=== PATIENT | male | born 1980 | race Caucasian/White ===

== ENCOUNTER → 2024-11-05 | Outpatient (CLI) | payer BC, SELFPAY ==
--- NOTE | 2024-11-05 10:36 | XR_ITS ---
Examination: Ribs, right, with PA chest, 5 views Technique: Chest PA, RIBS AP, RPO, LPO, AP coned lower ribs 5 views Exam date and time: November 05, 2024 1043 hours INDICATIONS: Patient fell today with injury to the right chest, right rib pain Findings: Normal heart size. No pneumothorax. Mild osteopenia Acute fracture right ninth rib for anteriorly with minimal angulation IMPRESSION: No pneumothorax Acute fracture right ninth rib anteriorly
== END | disposition home or self-care (01) ==
PROVIDERS: PCP Family Medicine; Referring Provider Family Medicine; Visit Provider Family Medicine
DX: S22.31XA Fracture of one rib, right side, initial encounter for closed fracture (principal); W19.XXXA Unspecified fall, initial encounter
CPT/HCPCS: 71101